=== PATIENT | male | born 1985 | race Caucasian/White ===

== ENCOUNTER 2019-04-28 07:55 | Emergency (ER) | payer MEDICARE, SELFPAY ==
[2019-04-28 07:57] VITALS: BP 154/82; PULSE 110; RESP 18; TEMP 36.6; O2SAT 97; BMI 24.3
--- NOTE | 2019-04-28 08:09 | ED.DCSUM_ITS ---
History of Present Illness Chief Complaint: Med Refill Informant: Patient Onset: Yesterday Context: Sudden Onset Timing: Continuous Quality: Prescription refill Location: not applicable Current Severity: Mild Maximum Severity: Moderate Worsened by: Not applicable Relieved by: Not applicable Associated Symptoms: Slight hyperactivity Narrative: Patient is a 34-year-old male who presents because his prescription for Seroquel and Latuda are nonrefillable. He is unable to contact his therapist. He presents for refill. He denies suicidal homicidal thoughts. He denies any other symptoms. Prior similar symptoms: No Recent Illness/Hospitalization: No Past Medical History - Allergies and Home Meds Allergies/Adverse Reactions: Allergies amoxicillin Allergy (Verified 04/28/19 07:58) Swelling Penicillins [PCN] Allergy (Verified 04/28/19 07:58) Swelling Primary Care Physician: Care Physician,No Primary [Primary Care Provider] - Prior records reviewed: No Past Medical History: - - Bipolar affective disorder Surgical History: noncontributory Lives: Alone Smoking Status: Current every day smoker Drugs: None Review of Systems General: Denies: Chills - Everything looks like it is in his, Fever, Malaise - Bag, Sweats Eyes: Denies: Visual changes - bilaterally, Blurred Vision - bilaterally Cardiovascular: Denies: Chest pain Respiratory: Denies: Dyspnea Psych: Denies: Depression, Anxiety, Suicidal thoughts, Suicidal ideations - Is 1 Hematologic: Denies: Easy bruising, Easy bleeding Allergy: Reports: Swelling of the mouth, Swelling of the tongue. Denies: Uticaria Physical Exam Vital Signs/Narrative: Vital Signs Temp Pulse Resp BP Pulse Ox 04/28/19 07:57 97.8 F 110 H 18 154/82 H 97 General: Well nourished, Well developed, No Acute Distress Head: Normocephalic, Atraumatic Eyes: Perrl, EOMI. Negative for: Pale conjunctiva, Scleral icterus Cardiovascular: Regular rate, Regular rhythm, No murmurs Respiratory: No distress Skin: Normal color, No rash Neurological: Alert, Oriented x3, Cranial nerves II-XII grossly intact, Normal Strength, Normal Sensation Psychological: - - Slightly anxious Diagnostic/Tx/Re-eval - Medical Decision Making Patient presents for prescription refill. He was given a prescription for Ser oquel and Latuda. ED Disposition - Plan for ED Patient: Disposition: Home or Assisted Living Diagnosis: Difficulty refilling prescriptions Instructions: Med Refill Prescriptions: Lurasidone HCl [Latuda] 40 mg PO QHS #30 tab Prescription Printed Quetiapine Fumarate [Seroquel] 100 mg PO QHS #30 tab Prescription Printed Referrals: Care Physician,No Primary [Primary Care Provider] - Doctor,Your [STAFF PHYSICIAN] - 1-2 Weeks
== END 2019-04-28 08:49 | disposition home or self-care (01) ==
LOC: ED 08:28
PROVIDERS: Emergency Provider Emergency Medicine
DX: Z76.0 Encounter for issue of repeat prescription (principal); F31.9 Bipolar disorder, unspecified; F17.200 Nicotine dependence, unspecified, uncomplicated; Z88.0 Allergy status to penicillin
CPT/HCPCS: 99282

== ENCOUNTER 2019-05-06 12:34 | Emergency (ER) | payer MEDICARE, SELFPAY ==
[2019-05-06 12:37] VITALS: BP 145/101; PULSE 113; RESP 16; TEMP 36.8; O2SAT 100; BMI 25.0
--- NOTE | 2019-05-06 13:03 | ED.VIS.PSYCH ---
History of Present Illness Chief Complaint: Mental Health Detail of Chief Complaint: Manic Informant: Patient Onset: Weeks, - - 2 Weeks Context: Gradual Onset Current Severity: Moderate Maximum Severity: Moderate Associated Symptoms: Change in sleeping, Pressured Speech Narrative: Patient has a history of bipolar disorder and schizophrenia. Patient has had 2-week history of increasing manic symptoms. He states he is not sleeping. He is currently on Latuda and Seroquel. Prior similar symptoms: Yes - Past Medical History (1) Bipolar disorder Status: Acute (2) Schizophrenia Status: Acute Past Medical History - Allergies and Home Meds Allergies/Adverse Reactions: Allergies amoxicillin Allergy (Verified 04/28/19 07:58) Swelling Penicillins [PCN] Allergy (Verified 04/28/19 07:58) Swelling Primary Care Physician: Care Physician,No Primary [Primary Care Provider] - Prior records reviewed: Yes Past Medical History: - - Reviewed Surgical History: noncontributory Smoking Status: Current every day smoker Review of Systems General: Denies: Chills, Fever Cardiovascular: Denies: Chest pain Respiratory: Denies: Dyspnea, Cough Gastrointestinal: Denies: Abdominal pain, Nausea, Vomiting Genitourinary: Denies: Dysuria Neurological: Denies: Headache Psych: Reports: Anxiety, - - Difficulty sleeping and feels like he is manic Physical Exam Vital Signs/Narrative: Vital Signs Temp Pulse Resp BP Pulse Ox 05/06/19 12:37 98.3 F 113 H 16 145/101 H 100 General: Well nourished, Well developed ENT: Moist mucous membranes Cardiovascular: Tachycardia Respiratory: No distress, CTA bilaterally Abdomen: Soft, Nontender, Hypoactive bowel sounds Neurological: Alert Psych: No suicidal or homicidal ideation, - - Pressured speech. Diagnostic/Tx/Re-eval Abnormal Lab Results 05/06/19 05/06/19 05/06/19 14:18 14:18 14:18 WBC 6.4 RBC 4.93 Hgb 15.2 Hct 43.5 MCV 88.2 MCH 30.8 MCHC 34.9 RDW 12.3 RDW Differential 39.4 Plt Count 230 MPV 8.9 Immature Gran % (Auto) 0.200 Neut % (Auto) 53.0 Lymph % (Auto) 33.5 Dare % (Auto) 11.0 H Eos % (Auto) 1.4 Baso % (Auto) 0.9 Absolute Neuts (auto) 3.4 Absolute Lymphs (auto) 2.14 Total Counted Not Reportable Sodium 138 Potassium 3.6 Chloride 106 Carbon Dioxide 27.0 Anion Gap 5 BUN 13 Creatinine 0.98 Estim Creat Clear Calc 103.72 Est GFR (MDRD) Af Amer 113 Est GFR (MDRD) Non-Af 94 BUN/Creatinine Ratio 13.3 Glucose 102 Calcium 9.3 Urine Opiates Screen Urine Methadone Screen Ur Barbiturates Screen Ur Phencyclidine Scrn Ur Amphetamines Screen U Methamphetamin-MDMA U Benzodiazepines Scrn Urine Cocaine Screen U Cannabinoids Screen Ur Drug Screen Comment Ethyl Alcohol 7.0 05/06/19 15:40 WBC RBC Hgb Hct MCV MCH MCHC RDW RDW Differential Plt Count MPV Immature Gran % (Auto) Neut % (Auto) Lymph % (Auto) Dare % (Auto) Eos % (Auto) Baso % (Auto) Absolute Neuts (auto) Absolute Lymphs (auto) Total Counted Sodium Potassium Chloride Carbon Dioxide Anion Gap BUN Creatinine Estim Creat Clear Calc Est GFR (MDRD) Af Amer Est GFR (MDRD) Non-Af BUN/Creatinine Ratio Glucose Calcium Urine Opiates Screen NEGATIVE Urine Methadone Screen NEGATIVE Ur Barbiturates Screen NEGATIVE Ur Phencyclidine Scrn NEGATIVE Ur Amphetamines Screen POSITIVE H U Methamphetamin-MDMA NEGATIVE U Benzodiazepines Scrn NEGATIVE Urine Cocaine Screen NEGATIVE U Cannabinoids Screen NEGATIVE Ur Drug Screen Comment Ethyl Alcohol Patient presents with history of bipolar and schizophrenia with worsening manic episodes over the past 2 weeks. Patient had been in contact with [facility]. vehicle delivery worker saw the patient and has contacted [facility]. Paperwork and labs are being faxed to them with anticipation of transfer. Disposition: Transfer ED Disposition - Plan for ED Patient: Referrals: Care Physician,No Primary [Primary Care Provider] -
--- NOTE | 2019-05-06 13:15 | CM.ED ---
Social Work Assessment Referral Date: 05/06/19 Informant: DR. SANCHEZ Reason for Consult: MENTAL HEALTH- MANIC EPISODES-PLACEMENT Information obtained from: DR. SANCHEZ, PATIENT, AND PATIENT'S STEP FATHERLISA Living Arrangements: PATIENT REPORTS RECENTLY MOVED TO [place] 2 WEEKS AGO FROM [place]. STAYED WITH FAMILY FOR A FEW DAYS, CURRENTLY LIVING IN A MOTEL. Employment/Financial: DISABLED Supports: PATIENT STATES WAS FOLLOWING [facility] [place]. PATIENT REPORTS GOOD SUPPORT FROM FAMILY. Social/Family Stressors: PATIENT REPORTS FEELING PARANOID, UNABLE TO SLEEP, TALKING TO SELF. PATIENT STATES MEDICATIONS HAS BEEN CHANGED AROUND AND FEELS LIKE HE NEEDS HELP. PATIENT STEP FATHER IN ROOM AND IN AGREEMENT. Mental Health History: PATIENT ADMITS TO OF BIPOLAR DISORDER AND SCHIZOPHRENIA. PATIENT STATES CURRENTLY ON LATUDA AND SEROQUEL. PATIENT STATES TOOK A TRIPLE DOSE OF HIS SEROQUEL A FEW NIGHTS AGO BECAUSE HE COULD NOT SLEEP. PATIENT WITH DISORGANIZED THOUGHTS, PARANOID BEHAVIOR, RAPID SPEECH, AND FLIGHT OF IDEAS. Substance Abuse History: PATIENT ADMITS TO OF SUBSTANCE USE-RECREATIONAL. PATIENT STATES ABOUT 3 WEEKS AGO WAS PARTYING IN [place]. PATIENT REPORTS USE OF SPEED, ANXIETY MEDS, OTHER PILLS. PATIENT REPORTS USED MARIJUANA 3-4 DAYS AGO, DRANK A CHAVIRA LAST NIGHT WITH HIS SEROQUEL. Interventions: SOCIAL SERVICE ASSESSMENT COLLABORATION WITH DR. SANCHEZ- RECOMMENDING INPATIENT PSYCH PLACEMENT. PATIENT IS CURRENTLY VOLUNTARY. Assessment: PATIENT IS A 34 Y/O MALE WHO PRESENTS TO ED FOR MENTAL HEALTH. PATIENT HAVING MANIC EPISODE THAT HE REPORTS HAS BEEN GOING ON FOR A FEW WEEKS. PATIENT RECENTLY MOVED TO [place] FROM [place]. PATIENT STATES MEDICATIONS HAVE BEEN CHANGED AND FEELS LIKE HE NEEDS HELP. PATIENT REPORTS HAS BEEN MORE PARANOID, TALKING TO SELF, DELUSIONAL. PATIENT WITH RAPID SPEECH, FLIGHT OF IDEAS, DISORGANIZED THINKING. PATIENT'S STEP FATHER IN ROOM DURING ASSESSMENT WITH PATIENT'S PERMISSION AND IS IN AGREEMENT PATIENT NEEDING HELP. PATIENT ADMITS TO RECREATIONAL DRUG USE AND STATES SMOKED MARIJUANA 3-4 DAYS AGO AND DRANK A CHAVIRA WITH HIS MEDICATIONS LAST EVENING. PATIENT VOICES HE WANTS HELP AND HAS BEEN IN CONTACT WITH [facility]. DISCUSSED WITH DR. SANCHEZ. DR. SANCHEZ IN AGREEMENT WITH PLAN FOR INPATIENT PSYCH. THIS WORKER TO REFER PATIENT TO [facility]. PLAN: PSYCH HOSPITALIZATION. REFERRAL TO [facility].
[2019-05-06] MEDS: Ziprasidone IM 20 MG/ML VIAL 10 MG IM (13:46)
[2019-05-06 13:52] VITALS: BP 129/115
--- NOTE | 2019-05-06 14:01 | CM.ED ---
SOCIAL WORK CALL TO [facility] TO UPDATE ON REFERRAL. NET ARCHITECT STATES PATIENT WILL NEED TO BE MEDICALLY CLEARED. AWAITING LABS AND TOX SCREEN. WILL FAX ONCE RECEIVED. JUD OLVERA, DURALUMIN METALWORKER, DRIVER EDUCATION ROAD INSTRUCTOR.
[2019-05-06 14:35] LABS: Absolute Lymphocyte Count 2.14 X10^3/ul (0.83-4.51); Absolute Neutrophil Count 3.4 X10^3/uL (2.0-7.7); Basophil# 0.06 X10^3/uL; Basophil% 0.9 % (0-1); Eosinophil# 0.09 X10^3/uL; Eosinophils% 1.4 % (0-5); Hematocrit 43.5 % (40-54); Hemoglobin 15.2 g/dl (13.0-16.5); Lymphocyte # 2.14 X10^3/ul (4.0); Lymphocyte % 33.5 % (19-41); Mean Corp Hgb Conc 34.9 g/gl (32-36); Mean Corpuscular Hgb 30.8 pg (27.0-32.0); Mean Corpuscular Volume 88.2 fL (80-94); Mean Platelet Vol. 8.9 fl (6.2-12.0); Neutrophil # 3.39 X10^3/uL (2.7-7.7); Platelet Count 230 K/mm3 (150-450); RBC Distribution Width CV 12.3 % (11.6-14.6); RBC Distribution Width SD 39.4 fl (35.1-43.9); Red Blood Count 4.93 M/mm3 (4.6-6.2); White Blood Count 6.4 K/mm3 (4.4-11.0)
[2019-05-06 14:37] LABS: POSITIVE COUNT NO; POSITIVE DIFFERENTIAL NO; POSITIVE MORPHOLOGY NO
[2019-05-06 14:38] LABS: Anion Gap 5 (5-15); BUN 13 mg/dL (7-18); BUN/Creat Ratio 13.3 RATIO (10-20); Calcium,Total 9.3 mg/dL (8.5-10.1); Chloride 106 mmol/L (98-107); Creatinine, Serum 0.98 mg/dL (0.70-1.30); EST Glomerular Filtration Rate 94 mL/min (>60); Est Glom Filt Rate - Afr Amer 113 mL/min (>60); Estimated Creatinine Clearance 103.72 ml/min; Glucose 102 mg/dL (74-106); Potassium 3.6 mmol/L (3.5-5.1); Sodium Level 138 mmol/L (136-145)
--- NOTE | 2019-05-06 15:38 | CM.ED ---
SOCIAL WORK PATIENT'S LABS FAXED TO [facility]. AWAITING TOX SCREEN. NURSING AND DR. SANCHEZ UPDATED. JUD OLVERA, CONCRETE MIXER OPERATOR, ATTRACTION WORKER.
[2019-05-06 16:13] VITALS: BP 120/91; PULSE 90; RESP 16; O2SAT 99
[2019-05-06 16:34] LABS: Amphetamine Urine VISTA POSITIVE (<1000 ng/mL); Barbiturate Urine VISTA NEGATIVE (< 200 ng/mL); Benzodiazepine Urine VISTA NEGATIVE (< 200 ng/mL); Cocaine Urine VISTA NEGATIVE (< 300 ng/mL); Ecstacy Urine VISTA NEGATIVE (< 500 ng/mL); Methadone Urine VISTA NEGATIVE (< 300 ng/mL); PCP Urine VISTA NEGATIVE (< 25 ng/mL); THC Urine VISTA NEGATIVE (< 50 ng/mL); Vista UDS pH Range 7
--- NOTE | 2019-05-06 16:36 | CM.ED ---
SOCIAL WORK RECEIVED CALL FROM ROXANNE WITH [facility] REQUESTING EKG, TOX SCREEN AND PAST MEDICAL HX. UPDATED BATH ATTENDANT ON NEED FOR EKG. WILL FAX CLINICAL INFORMATION ONCE COMPLETED. JUD OLVERA, RUG CLEANER, GEOMORPHOLOGIST.
--- NOTE | 2019-05-06 16:40 | CM.ED ---
SOCIAL WORK RESULTS OF TOX SCREEN FAXED TO [facility]. JUD OLVERA, REACHER, BILINGUAL SOCIAL WORKER.
--- NOTE | 2019-05-06 16:45 | EKG12_ITS ---
Test Reason : MENTAL HEALTH Blood Pressure : / mmHG Vent. Rate : 093 BPM Atrial Rate : 093 BPM P-R Int : 138 ms QRS Dur : 086 ms QT Int : 346 ms P-R-T Axes : 084 082 059 degrees QTc Int : 430 ms Poor data quality, interpretation may be adversely affected Normal sinus rhythm Normal ECG Confirmed by DELICIA INTERIANO, MEETA ([id number]), assignment editor KARTHIK SINGH ([id number]) on 05/09/2019 1:10:55 PM Referred By: DANIEL Confirmed By:MEETA NESBITT MD
--- NOTE | 2019-05-06 17:16 | CM.ED ---
SOCIAL WORK EKG FAXED TO [facility]. AWAITING ACCEPTANCE AT THIS TIME. JUD OLVERA, BASS FISHER, BEATER OUT LEVELING MACHINE.
--- NOTE | 2019-05-06 17:36 | CM.ED ---
SOCIAL WORK RECEIVED CALL FROM ROXANNE WITH [facility]. PATIENT ACCEPTED BY DR. CATHERINE FOR [facility]. NURSE CAN CALL REPORT TO . ROXANNE INQUIRING ABOUT PINK SLIP. INFORMED PATIENT HAS BEEN VOLUNTARY UP TO THIS POINT. WILL DISCUSS WITH PATIENT. ROXANNE TO FAX OVER VOLUNTARY FORM FOR PATIENT TO COMPLETE AND HAVE WITNESSED. JUD OLVERA, REFINER OPERATOR, RESPIRATORY CARE SPECIALIST.
--- NOTE | 2019-05-06 17:40 | CM.ED ---
SOCIAL WORK MET WITH PATIENT TO UPDATE ON ACCEPTANCE TO [facility]. PATIENT STATES FEELS BETTER AND THINKS HE CAN GO HOME. DISCUSSED PATIENT'S NEED FOR INPATIENT TREATMENT. UPDATED DR. CISNEROS. PINK SLIPPED SIGNED. CALL TO ROXANNE AT [facility] TO UPDATE PATIENT HAS BEEN PINK SLIPPED. ROXANNE REQUESTING COPY. COPY FAXED. UPDATED TRAFFIC ENGINEERING TECHNICIAN-EKTA AND PATIENT'S NURSE ON THE ABOVE. TRAFFIC ENGINEERING TECHNICIAN TO SET UP TRANSPORT. JUD OLVERA, TABLE TENDER, KNIT GOODS WASHER.
[2019-05-06 18:07] VITALS: BP 116/91; PULSE 94; RESP 14; O2SAT 100
--- NOTE | 2019-05-06 18:13 | ED.RN ---
ATTEMPTED TO CALL RN [facility] UNABLE TO REACH AT THIS TIME.
== END 2019-05-06 19:52 ==
PROVIDERS: Emergency Provider Emergency Medicine
DX: F31.9 Bipolar disorder, unspecified (principal); F20.9 Schizophrenia, unspecified; Z88.0 Allergy status to penicillin; F17.200 Nicotine dependence, unspecified, uncomplicated; Z79.899 Other long term (current) drug therapy
CPT/HCPCS: 80048; 80307; 80320; 85025; 93005; 96372; 99283; G0480; J3486

== ENCOUNTER 2020-08-15 21:27 | Emergency (ER) | payer MEDICARE, SELFPAY ==
[2020-08-15 21:28] VITALS: BP 144/88; PULSE 124; RESP 15; TEMP 37.3; O2SAT 98; BMI 28.0
--- NOTE | 2020-08-15 21:37 | RAD_ITS ---
HISTORY: PAIN ALONG RIGHT SIDE OF LOWER BACK AFTER BASKETBALL INJURY 2 DAYS AGO ADDITIONAL HISTORY: None provided. EXAMINATION/TECHNIQUE: XR Spine Lumbar 2 or 3 Views Number of images including paperwork: 2 COMPARISON: None FINDINGS: VERTEBRAE: No acute fracture. VERTEBRAL ALIGNMENT: No traumatic subluxation. DISKS AND JOINTS: No significant degenerative changes. SOFT TISSUES: Unremarkable paraspinous soft tissues. RAD/Lumbar Spine 2 or 3 Views IMPRESSION: No acute findings. at 2219 Reported and signed by: Marjorie Limon MD Electronically Signed: Marjorie Limon MD at 22:19 EDT Tel , Service support ,
--- NOTE | 2020-08-15 21:40 | ED.DCSUM_ITS ---
History of Present Illness Chief Complaint: Fall Informant: Patient Onset: Days Context: Gradual Onset Timing: Continuous Current Severity: Moderate Maximum Severity: Moderate Narrative: The patient is a 35-year-old male with history of schizoaffective disorder that presents to the emergency department hand and back injury. Patient states that 2 days ago, he was playing basketball. He states that he hit someone's hand and then fell to the ground. He hit his low back. Since then, has had some tightness across his low back. It does not radiate down his leg. He denies any trouble urinating. He denies any fevers or chills. He states that he took some Tylenol today with little improvement. He denies any history of prior back injury or surgery. He denies any history of IV drug use. He is right-hand dominant. 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 Prior similar symptoms: No Recent Illness/Hospitalization: No Past Medical History - Allergies and Home Meds Allergies/Adverse Reactions: Allergies amoxicillin Allergy (Verified 08/15/20 21:28) Swelling Penicillins [PCN] Allergy (Verified 08/15/20 21:28) Swelling Primary Care Physician: NOT,DEFINED [NON-STAFF] - Prior records reviewed: Yes Past Medical History: - Surgical History: noncontributory Smoking Status: Never smoker Review of Systems ROS: - Schizoaffective disorder General: Denies: Chills, Fever, Sweats Eyes: Denies: Visual changes - bilaterally, Diplopia ENT: Denies: Rhinorrhea, Sore throat Cardiovascular: Denies: Chest pain, Palpitations Respiratory: Denies: Dyspnea, Cough, Dyspnea on exertion Gastrointestinal: Denies: Abdominal pain, Nausea, Vomiting, Diarrhea, Melena, Hematochezia Genitourinary: Denies: Dysuria, Hematuria, Frequency Musculoskeletal: Denies: Back pain, Extremity Pain Skin: Denies: Rash, Wounds Neurological: Denies: Headache, Weakness, Numbness Physical Exam Vital Signs/Narrative: Vital Signs Temp Pulse Resp BP Pulse Ox 08/15/20 21:28 99.1 F 124 H 15 144/88 H 98 Inital Vital Signs reviewed: Yes General: Well nourished, Well developed, No Acute Distress Head: Normocephalic, Atraumatic Eyes: Perrl, EOMI ENT: Moist mucous membranes, No rhinorrhea Neck: Supple, Nontender Cardiovascular: Regular rate, Regular rhythm, No murmurs Respiratory: No distress, CTA bilaterally, Chest nontender Abdomen: Soft, Nontender, Nondistended, Normal bowel sounds Back: Normal Inspection, - - Tender in the right lateral lumbar area. Straight leg raise negative. 2+ symmetric lower extremity pulses. 2+ reflexes. No weakness of dorsiflexion, plantar flexion, or extensor hallucis longus.. Negative for: Spinal tenderness Extremities: No edema, Tenderness - Mild tenderness over the right fifth digit. Flexion extension preserved. No deformity. No rotational deformity. Normal cap refill. Skin: Normal color, No rash Neurological: Alert, Oriented x3, Cranial nerves II-XII grossly intact, Normal Strength, Normal Sensation Psychological: Normal affect, Normal Mood Diagnostic/Tx/Re-eval - Medical Decision Making Plain films were obtained of the lumbar spine and of the hand. There is no evidence of fracture dislocation. The patient's symptoms in his back do seem primarily muscular. He has no red flag symptoms. He is normal pulses of the lower extremity. He has normal reflexes and gait. I do feel that his symptoms are secondary to contusion. Plain films of the hand were also unremarkable. At this point, I will treat the patient with anti-inflammatories. He will be discharged home. Impression 1. Lumbar contusion 2. Right hand contusion ED Disposition - Plan for ED Patient: Instructions: ED LUMBAR SPRAIN/STRAIN, ED HAND CONTUSION Prescriptions: Naproxen [Naprosyn] 500 mg PO BID PRN #20 tab Prescription Printed Referrals: NOT,DEFINED [NON-STAFF] -
--- NOTE | 2020-08-15 21:53 | RAD_ITS ---
HISTORY: PAIN ALONG 5TH DIGIT/METACARPAL AFTER INJURY PLAYING BASKETBALL A COUPLE DAYS AGO ADDITIONAL HISTORY: None provided. EXAMINATION/TECHNIQUE: XR Hand Min 3 Views Right Number of images including paperwork: 3 COMPARISON: None FINDINGS: BONES: No acute fracture. JOINTS: No subluxation. SOFT TISSUES: No distinct foreign body. RAD/Hand Min 3 Views IMPRESSION: No acute osseous abnormality. at 2218 Reported and signed by: Marjorie Limon MD Electronically Signed: Marjorie Limon MD at 22:17 EDT Tel , Service support ,
== END 2020-08-15 22:36 | disposition home or self-care (01) ==
LOC: ED 21:51
PROVIDERS: Emergency Provider Emergency Medicine
DX: S30.0XXA Contusion of lower back and pelvis, initial encounter (principal); W03.XXXA Other fall on same level due to collision with another person, initial encounter; Y93.67 Activity, basketball; Y92.9 Unspecified place or not applicable; Y99.9 Unspecified external cause status; F25.9 Schizoaffective disorder, unspecified; Z79.899 Other long term (current) drug therapy; S60.221A Contusion of right hand, initial encounter
CPT/HCPCS: 72100; 73130; 99281; 99283

== ENCOUNTER 2021-04-08 17:37 | Emergency (ER) | payer MEDICARE, MEDICAID, SELFPAY ==
[2021-04-08 17:39] VITALS: BP 147/100; PULSE 65; RESP 14; TEMP 36.7; O2SAT 99; BMI 28.0
[2021-04-08] MEDS: Diphth,Pertuss(Acell),Tet Vac 0.5 ML Vial IM (18:25)
[2021-04-08] MEDS: Lidocaine 1% (20 ml mdv) 20 ML Vial INFILT (18:27)
--- NOTE | 2021-04-08 18:35 | EX.ED.GENINJ ---
HPI History of Present Illness Chief Complaint: Laceration Informant: patient Narrative Narrative: 36-year-old male states that he was attempting to move a toilet when he sustained a laceration to the volar aspect of his right index finger. Unknown last tetanus. [facility] Medical History Anxiety Depression Home Medications quetiapine 100 mg PO QHS #30 tab 04/28/19 [Rx Last Taken Unknown] lurasidone 80 mg PO DAILY 05/06/19 [History Last Taken Unknown] naproxen 500 mg PO BID PRN #20 tab 08/15/20 [Rx Last Taken Unknown] lithium carbonate 300 mg PO BID 04/08/21 [History Last Taken Unknown] Allergy/AdvReac Type Severity Reaction Status Date / Time amoxicillin Allergy Swelling Verified 04/08/21 17:39 Penicillins [PCN] Allergy Swelling Verified 04/08/21 17:39 no surgical history Social History (Updated 04/08/21 @ 18:[address] William Guadarrama DO) Smoking Status: Current every day smoker tobacco type: cigarettes substance use type: does not use ROS ROS ED Constitutional Constitutional ED: Denies chills or weight loss Eyes Eyes: Denies change in vision or diplopia ENT ENT ED: Denies ear pain, rhinorrhea or sore throat Cardiovascular Cardiovascular: Denies chest pain, orthopnea, palpitations or racing heartbeat Respiratory/Chest Respiratory/Chest: Denies cough, dyspnea or orthopnea Gastrointestinal Gastrointestinal: Denies abdominal pain, diarrhea, nausea or vomiting Genitourinary Genitourinary ED: Denies dysuria, hematuria or urinary frequency Musculoskeletal Musculoskeletal: Denies arthralgias or myalgias Integumentary Reports other Details: See history of present illness ; Denies abscess or rash Neurologic Neurologic: Denies headache(s) or weakness Psychiatric Psychiatric: Denies anxiety, depression, suicidal ideation or suicidal thoughts Endocrine Endocrinology: Denies polydipsia, polyphagia or polyuria Allergic/Immunologic Allergic/Immunologic ED: Denies mouth swelling, tongue swelling or urticaria EXAM Physical Exam Const Vital Signs: 04/08/21 17:39 Temperature 98.1 F Temperature Source Temporal Pulse Rate 65 Respiratory Rate 14 Blood Pressure 147/100 H Blood Pressure Mean 115 Pulse Ox 99 Oxygen Delivery Method Room Air Positive well nourished and well developed General Appearance ED: well developed HEENT Reports normocephalic, head/scalp atraumatic and moist mucous membranes Eyes PERRL and EOMs intact bilaterally Neck no lymphadenopathy, supple and no JVD Resp normal respiratory effort and clear to auscultation bilaterally Cardio regular rate, regular rhythm and no murmurs GI normal to inspection, nondistended, normoactive bowel sounds and non-tender Palpation: soft Back/Spine no CVA tenderness and normal ROM Extremity Extremity Narrative: There is a 2.5 cm linear laceration over the volar aspect of the proximal right index finger. Wound edges are well approximated. Direct testing of the profundus and superficialis tendons are normal. Laceration is into the subcutaneous tissue General Extremety ED: Negative for edema General Extremity: Negative for edema Neuro oriented x3 and CN's II-XII intact bilaterally Sensorium / Orientation: alert Motor Exam: strength 5/5 throughout Psych mental status grossly normal Mood & Affect: Negative for depressed or tearful Skin no rashes or lesions noted and no wounds MDM MDM MDM Narrative Medical decision making narrative: Wound was locally anesthetized using 1% lidocaine. Was washed with Shur-Clens and explored. No visualization of the tendon was made. Was closed using a total of #4 4-0 Ethilon sutures. Wound be dressed. Tetanus was updated with Adacel. Follow-up 10 days for suture removal Discharge Plan Triage Chief Complaint: Laceration Other Complaint: Suture Remv ED Provider: William Guadarrama Dx/Rx/DC Orders Clinical Impression: Finger laceration Instructions: ED Laceration, Hand: All Closures Prescriptions: No Action quetiapine 100 MG tablet 100 mg PO QHS Qty: 30 RF: 0 lurasidone 40 MG tablet 80 mg PO DAILY RF: 0 naproxen 500 MG tablet 500 mg PO BID PRN Qty: 20 RF: 0 lithium carbonate 300 mg Capsule 300 mg PO BID RF: 0 Primary Care Provider: Care Physician,No Primary Referrals: Care Physician,No Primary [Primary Care Provider] - Clinic,NOW [NON-STAFF] - 10 Day for suture removal Disposition Disposition: Home, self care
== END 2021-04-08 18:46 | disposition home or self-care (01) ==
PROVIDERS: Emergency Provider Emergency Medicine
DX: S61.210A Laceration without foreign body of right index finger without damage to nail, initial encounter (principal); X58.XXXA Exposure to other specified factors, initial encounter; Y93.89 Activity, other specified; Y92.89 Other specified places as the place of occurrence of the external cause; Y99.9 Unspecified external cause status; Z23 Encounter for immunization; F17.210 Nicotine dependence, cigarettes, uncomplicated
CPT/HCPCS: 12001; 90715; 99283

== ENCOUNTER 2021-08-07 18:22 | Emergency (ER) | payer MEDICARE, MEDICAID, SELFPAY ==
[2021-08-07 18:23] VITALS: BP 155/118; PULSE 122; RESP 16; TEMP 36.4; O2SAT 96; BMI 27.2
== END 2021-08-07 19:10 ==
LOC: ED 19:20
DX: R06.02 Shortness of breath (principal)

== ENCOUNTER 2022-03-14 11:39 | Emergency (ER) | payer MEDICARE, MEDICAID, SELFPAY ==
[2022-03-14 11:40] VITALS: BP 160/109; PULSE 107; RESP 18; TEMP 37.2; O2SAT 99; BMI 28.7
--- NOTE | 2022-03-14 11:53 | CT_ITS ---
STUDY: CT FACIAL BONES WITH CONTRAST REASON FOR EXAM: Male, 36 years old. Right facial swelling. Possible dental abscess. RADIATION DOSAGE (If Supplied By Facility): CTDIvol = ( 29.38 ) mGy, DLP = ( 620.92 ) mGycm TECHNIQUE: The patient was scanned in a multi detector CT scanner. Transaxial imaging was performed following the intravenous administration of IV 100mL Isovue-300. Sagittal and coronal images were reconstructed. Individualized dose optimization techniques were used for this CT. COMPARISON: None. FINDINGS: Diffuse soft tissue swelling overlying the right maxillary region. There is a 1.5 cm x 1 cm hypodensity adjacent to the deep right maxillary soft tissues abutting the maxillary bone. There is a lucency at the base of the premolar tooth in the right maxillary bone. This also evidence of a cavity within the last molar of the right posterior axillary arch. Normal orbital la and orbital contents. Normal nasal bones and anterior nasal spine. Normal facial bones. There is no demonstrated fracture. There is partial opacification of the right maxillary sinus. CT/Sinus/Facial Bone WITH Contras IMPRESSION: Diffuse swelling of the right maxillary soft tissues with findings suggestive of an abscess at the base of the premolar tooth of the right maxillary bone. Electronically Signed: Arie Rosales MD at 12:44 EDT ,
--- NOTE | 2022-03-14 11:56 | EDS_ITS ---
HPI History of Present Illness Chief Complaint: Dental Informant: patient Onset/Context/Timing Onset: Days Context: Gradual Onset Current Severity: Moderate Maximum Severity: Moderate Narrative Narrative: Patient presents secondary to dental abscess. He reports right upper dental pain with facial swelling for the past several days. He was seen at a walk-in clinic and given clindamycin. In spite of this he feels that the swelling is worsening. He denies fever or chills. [facility] Medical History Anxiety Bipolar disorder Depression Rolf's angina Schizophrenia Home Medications cetirizine 10 mg capsule 10 mg PO DAILY PRN 05/10/21 [History Last Taken Unknown] fluticasone propionate 50 mcg/actuation nasal spray,suspension 1 spray INTRANASAL DAILY g 05/10/21 [History Last Taken Unknown] kratom PO 05/10/21 [History Last Taken Unknown] phenobit 250 mg PO 05/10/21 [History Last Taken Unknown] metronidazole 500 mg PO TID #30 tab 03/14/22 [Rx Last Taken Unknown] Allergy/AdvReac Type Severity Reaction Status Date / Time amoxicillin Allergy Swelling Verified 03/14/22 11:43 Penicillins [PCN] Allergy Swelling Verified 03/14/22 11:43 Family History Other Diabetes Hypertension Myocardial infarction Seizures Sleep apnea Surgical History History of dental surgery [place] teeth removed Social History household members: none housing: house Smoking Status: Current every day smoker tobacco type: cigarettes alcohol intake: never substance use type: does not use what type of physical activity do you participate in: other details: basketball frequency: daily seatbelt use: always do you feel safe at home: Yes ROS ROS ED Constitutional Constitutional ED: Denies chills or fever(s) Eyes Eyes: Denies change in vision ENT ENT ED: Reports other Details: Right facial pain and swelling ; Denies sore throat Cardiovascular Cardiovascular: Denies chest pain Respiratory/Chest Respiratory/Chest: Denies cough or dyspnea Gastrointestinal Gastrointestinal: Denies abdominal pain, nausea or vomiting Musculoskeletal Musculoskeletal: Denies back pain or neck pain Integumentary Denies rash Neurologic Neurologic: Denies headache(s) or weakness Allergic/Immunologic Allergic/Immunologic ED: Denies urticaria EXAM Physical Exam Const Vital Signs: 03/14/22 11:40 Temperature 98.9 F Temperature Source Temporal Pulse Rate 107 H Respiratory Rate 18 Blood Pressure 160/109 H Blood Pressure Mean 126 Pulse Ox 99 Oxygen Delivery Method Room Air Positive well nourished and well developed General Appearance ED: well developed HEENT Reports moist mucous membranes HEENT Narrative: Right-sided facial edema over the maxilla. No erythema. Multiple dental cavities noted with no singular focal area of tenderness. Submandibular space is soft. Posterior pharynx is normal. Patient speaks with a strong voice and is tolerating secretions well. Eyes PERRL and EOMs intact bilaterally Neck supple Chest Wall inspection of chest normal and palpation of chest normal Resp normal respiratory effort and clear to auscultation bilaterally Cardio regular rate and regular rhythm GI non-tender Palpation: soft Extremity normal to inspection Neuro oriented x3 Sensorium / Orientation: alert Psych mental status grossly normal MDM MDM MDM Narrative Medical decision making narrative: Lab work and cultures obtained. Patient sent for CT scan of the facial bones with IV contrast. Lab Data Attestation: I reviewed the patient's lab results. Labs: Laboratory Results - last 24 hr 03/14/22 03/14/22 12:05 12:05 WBC 12.0 H RBC 5.07 Hgb 15.6 Hct 45.2 MCV 89.2 MCH 30.8 MCHC 34.5 RDW Std Deviation 37.6 RDW Coeff of [place] 11.7 Plt Count 277 MPV 8.9 Immature Gran % (Auto) 0.400 Neut % (Auto) 61.1 Lymph % (Auto) 25.2 [place] % (Auto) 10.9 H Eos % (Auto) 1.6 Baso % (Auto) 0.8 Absolute Neuts (auto) 7.3 Absolute Lymphs (auto) 3.02 Nucleated RBC % 0 Sodium 136 Potassium 4.2 Chloride 104 Carbon Dioxide 26.0 Anion Gap 6 BUN 11 Creatinine 1.13 Estim Creat Clear Calc 94.21 Est GFR (MDRD) Af Amer 95 Est GFR (MDRD) Non-Af 78 BUN/Creatinine Ratio 9.7 L Glucose 106 Calcium 9.6 Radiography Diagnostic Testing: Clinical Impression(s) from Imaging Studies Facial/Sinus 03/14/22 11:53 IMPRESSION: Diffuse swelling of the right maxillary soft tissues with findings suggestive of an abscess at the base of the premolar tooth of the right maxillary bone. Electronically Signed: Arie Rosales MD at 12:44 EDT , Treatment and Re-Evaluation Narrative: Lab work reveals mild white count elevation at 12.0. No left shift. Chemistry studies normal. CT scan does reveal swelling of the right maxillary soft tissues with an abscess at the base of the premolar tooth on the right maxillary bone. This is described as being right next to the maxillary bone. I spoke Dr. Flores. He states that the upper abscesses are not typically as severe as the lower. With patient having a penicillin allergy he is to continue clindamycin and we will add Flagyl. Patient is given return instructions. He is advised to use heat to the area. He will be referred to Dr. Flores for follow-up. Discharge Plan Triage Chief Complaint: Dental ED Provider: Karishma Paige Dx/Rx/DC Orders Clinical Impression: Dental abscess Instructions: ED Dental Abscess Prescriptions: New metronidazole 500 mg tablet 500 mg PO TID Qty: 30 RF: 0 No Action kratom PO RF: 0 phenobit 250 mg PO RF: 0 Zyrtec 10 mg capsule 10 mg PO DAILY PRNRF: 0 fluticasone propionate 50 mcg/actuation spray,suspension 1 spray intranasal DAILY RF: 0 Primary Care Provider: Care Physician,No Primary Referrals: Rupesh Flores DDS [STAFF PHYSICIAN] - 3-5 Days if not improving Care Physician,No Primary [Primary Care Provider] - Disposition Disposition: Home, Self Care
[2022-03-14 12:27] LABS: Anion Gap 6 (5-15); BUN 11 mg/dL (7-18); BUN/Creat Ratio 9.7 RATIO (10-20); Calcium,Total 9.6 mg/dL (8.5-10.1); Chloride 104 mmol/L (98-107); Creatinine, Serum 1.13 mg/dL (0.70-1.30); EST Glomerular Filtration Rate 78 mL/min (>60); Est Glom Filt Rate - Afr Amer 95 mL/min (>60); Estimated Creatinine Clearance 94.21 ml/min; Glucose 106 mg/dL (74-106); Potassium 4.2 mmol/L (3.5-5.1); Sodium Level 136 mmol/L (136-145)
[2022-03-14 12:32] LABS: Absolute Lymphocyte Count 3.02 X10^3/uL (0.83-4.51); Absolute Neutrophil Count 7.3 X10^3/uL (2.0-7.7); Basophil% 0.8 % (0-1); Eosinophil# 0.19 X10^3/uL; Eosinophils% 1.6 % (0-5); Hematocrit 45.2 % (40-54); Hemoglobin 15.6 g/dL (13.0-16.5); Lymphocyte # 3.02 X10^3/ul (0.83-4.51); Lymphocyte % 25.2 % (19-41); Mean Corp Hgb Conc 34.5 g/dL (32-36); Mean Corpuscular Hgb 30.8 pg (27.0-32.0); Mean Corpuscular Volume 89.2 fL (80-94); Mean Platelet Vol. 8.9 fl (6.2-12.0); Monocyte# 1.31 X10^3/uL; Monocyte% 10.9 % (0-10); NRBC Flagged by Analyzer 0 % (0-5); Neutrophil # 7.31 X10^3/uL (2.7-7.7); Neutrophil % 61.1 % (47-70); Platelet Count 277 K/mm3 (150-450); RBC Distribution Width CV 11.7 % (11.6-14.6); RBC Distribution Width SD 37.6 fl (35.1-43.9); Red Blood Count 5.07 M/mm3 (4.6-6.2)
[2022-03-14 13:25] VITALS: BP 157/103; PULSE 92; RESP 16; O2SAT 97
== END 2022-03-14 13:27 | disposition home or self-care (01) ==
PROVIDERS: Emergency Provider Emergency Medicine; Visit Provider Emergency Medicine
DX: K04.7 Periapical abscess without sinus (principal); F20.9 Schizophrenia, unspecified; F31.9 Bipolar disorder, unspecified; F41.9 Anxiety disorder, unspecified; F17.210 Nicotine dependence, cigarettes, uncomplicated
CPT/HCPCS: 70487; 80048; 85025; 87040; 99283; Q9967; A4216

== ENCOUNTER 2024-06-25 15:58 | Emergency (ER) | payer MEDICARE, MEDICAID, SELFPAY ==
[2024-06-25 16:02] VITALS: BP 150/98; PULSE 117; RESP 20; TEMP 36.2; O2SAT 100; BMI 21.6
--- NOTE | 2024-06-25 16:13 | EX.ED.DYSGE1 ---
HPI History of Present Illness Chief Complaint: Constipation [facility] Medical History Anxiety Bipolar disorder Depression Rolf's angina Schizophrenia Home Medications ?Medication ?Instructions ?Recorded ?Last Taken ?Type cetirizine 10 mg capsule (Zyrtec) 10 mg PO DAILY PRN 05/10/21 Unknown History fluticasone propionate 50 1 spray intranasal DAILY 05/10/21 Unknown History mcg/actuation nasal spray,suspension kratom PO 05/10/21 Unknown History phenobit 250 mg PO 05/10/21 Unknown History metronidazole 500 mg tablet 500 mg PO TID #30 tabs 03/14/22 Unknown Rx cefdinir 300 mg capsule 600 mg (2 x 300 mg) PO DAILY #7 06/25/24 Unknown Rx caps Allergy/AdvReac Type Severity Reaction Status Date / Time amoxicillin Allergy Swelling Verified 06/25/24 16:03 Penicillins (PCN) Allergy Swelling Verified 06/25/24 16:03 Family History Other Diabetes Hypertension Myocardial infarction Seizures Sleep apnea Surgical History History of dental surgery [place] teeth removed Social History household members: none housing: house Smoking Status: Current every day smoker tobacco type: cigarettes alcohol intake: never substance use type: does not use what type of physical activity do you participate in: other details: basketball frequency: daily seatbelt use: always do you feel safe at home: Yes EXAM Physical Exam Const Vital Signs: 06/25/24 16:02 Temperature 97.2 F L Temperature Source Temporal Pulse Rate 117 H Respiratory Rate 20 H Blood Pressure 150/98 H Blood Pressure Mean 115 Pulse Ox 100 Oxygen Delivery Method Room Air MDM MDM MDM Narrative Medical decision making narrative: HISTORY OF PRESENT ILLNESS: 39-year-old male presents with constipation. He states he has lots of pressure in his rectum. He notes painful urination as well. He further states this occurred 3 days ago. Notes last bowel movement 7 days ago. Notes his usual frequency between bowel movements 7 days. He states he feels better today but is concerned about not having regular bowel movements. States he tried to change his diet to keto diet which has not improved his frequency or volume of stools. He also notes painful urination. Denies hematuria, sexual activity, lesions to the penis, no vomiting, no chest pain, no shortness of breath, no fever. Denies history of abdominal surgeries. Patient is not sexually active. REVIEW OF SYSTEMS: Pertinent positives: Constipation, painful urination Pertinent negatives: Vomiting, fever PHYSICAL EXAM: Nursing triage notes reviewed, Vital signs reviewed Constitutional: please see [facility] HENT: MMM Eyes: Pupils equal round and reactive to light, Extraocular muscles intact Neck: No stridor, no JVD, full neck ROM Lungs: Clear to auscultation, No wheezing or rales. No increased work of breathing, no conversational dyspnea, no accessory muscle use, no nasal flaring. No respiratory distress noted Heart: Regular rate and rhythm, No murmurs, No rubs and No gallops, 2+ distal pulses (radial, femoral, posterior tibial) in all extremities Abdomen: Soft, there is no tenderness, rigidity, rebound or guarding, no obvious peritoneal signs, no palpable pulsatile abdominal masses, no auscultated abdominal bruit : No CVAT Extremities: No edema Neuro: No focal neurological deficits, cranial nerves II through XII intact, 5/5 strength in all extremities. Intact sensation to light touch in all extremities, 2+ reflexes bilateral patella tendons. Normal gait. No ataxia. Skin: No rash or lesions noted MEDICAL DECISION MAKING: Chief Complaint: Constipation External records reviewed: Imaging reviewed: No recent [facility] imaging of the abdomen or pelvis Factors affecting care: History of bipolar disorder, polysubstance abuse Social determinants of health: n polysubstance abuse [facility] Narrative: Patient was initially tachycardic with a rate of 117 otherwise afebrile and nontoxic-appearing. Abdominal exam was benign, no peritoneal signs. I considered the following differential diagnosis: Small bowel obstruction, constipation, fecal impaction The patient abdominal exam was benign not consistent with obstruction. In addition to this per his history patient has had his usual frequency of bowel movements approximately 7 days per his report. I did obtain a KUB to assess any signs of a large bowel obstruction. I also obtained a urinalysis to rule out UTI given report of painful urination. ALL IMAGES (IF OBTAINED) HAVE BEEN PERSONALLY REVIEWED AND INTERPRETED BY MYSELF. Urinalysis with evidence of UTI, hematuria. Will send for culture and start empirical antibiotics. Will start patient empirically on cefdinir for 7 days KUB read and reviewed personally myself shows no evidence of obvious intra-abdominal obstruction. KUB consistent with patient's history of constipation. The patient and/or family, caregivers express understanding. The patient and/or family, caregivers agrees with the plan. Shared decision making: I will have a discussion with the patient and or visitors regarding risk/benefits of further testing or admission. They will be made aware of of the risk/benefits inherent in this decision they will be given the opportunity to voice understanding. Total critical care time today provided was at least 0 minutes. This excludes separately billable procedures. Critical care time (if documented) is secondary to the patient having high probability of clinically significant/life threatening deterioration in the patient's condition which required my urgent intervention. Impression: 1. Constipation 2. UTI Dispo: Discharge home This note was generated with [employer] dictation software. It may contain incorrect words, spelling, and punctuation that were not noted in review of the chart prior to signing. Lab Data Labs: Laboratory Results - last 24 hr 06/25/24 16:42 Urine Color Yellow Urine Clarity Sl. Cloudy Urine pH 6.0 Ur Specific [place] 1.025 Urine Protein 30 H Urine Glucose (UA) Normal Urine Ketones 150 A* Urine Occult Blood 25 H Urine Nitrite Positive H Urine Bilirubin 1 H Urine Urobilinogen 1 H Ur Leukocyte Esterase 500 H Urine RBC 10-25 SEEN Urine WBC 25-50 SEEN Ur Squamous Epith Cells 0 SEEN Ur Renal Epithelial Cell 0-5 SEEN Urine Bacteria 2+ Urine Mucus 0 SEEN Radiography Diagnostic Testing: Clinical Impression(s) from Imaging Studies KUB X-Ray 06/25/24 16:45 IMPRESSION: Non-obstructive bowel gas pattern. Moderate amount of fecal retention. Electronically Signed: Yannick Felipe MD at 17:33 EDT , Discharge Plan Triage Chief Complaint: Constipation ED Provider: Reggie Luo Dx/Rx/DC Orders Instructions: Urinary Tract Infections in Men, ED Constipation (Adult) Prescriptions: New cefdinir 300 mg capsule 600 mg PO DAILY Qty: 7 0RF No Action kratom PO Rx Instructions: Mix in with water phenobit 250 mg PO Zyrtec 10 mg capsule 10 mg PO DAILY PRN fluticasone propionate 50 mcg/actuation spray,suspension 1 spray intranasal DAILY metronidazole 500 mg tablet 500 mg PO TID Qty: 30 0RF Primary Care Provider: Care Physician,No Primary Referrals: Lopez Kruse MD [Med Staff - Active Staff] - Activity Restrictions/Additional Instructions: Thank you for trusting us with your care today! Please go to local pharmacy or drugstore and obtain a bowel regiment which consist of MiraLAX, Colace and senna. Please take each of these medicines daily until desired consistency and volume of stool is reached. You been diagnosed with a urinary tract infection. This is a bacterial infection of the urinary tract and bladder. Please take antibiotics as prescribed until course is completed. Please return to the emergency department if your symptoms change or worsen. Specifically if you begin vomiting, severe pain, to have bowel movements for greater than 2 weeks. Please follow with your primary care physician for further outpatient evaluation and management. Print Language: Russian Disposition Disposition: Home, Self Care
--- NOTE | 2024-06-25 16:45 | RAD_ITS ---
INDICATION: constipation EXAMINATION/TECHNIQUE: X-RAY - XR Abdomen 1 View COMPARISON: None FINDINGS: BOWEL GAS PATTERN: Non-obstructive. Moderate amount retained stool in the colon. FREE AIR: Not assessed on a single supine view. ORGANOMEGALY: Not seen. CALCIFICATIONS: No abnormal calcifications observed. LOWER CHEST: No acute pathology. BONES AND SOFT TISSUES: No acute pathology. RAD/Abdomen Single View (Portable) IMPRESSION: Non-obstructive bowel gas pattern. Moderate amount of fecal retention. Electronically Signed: Yannick Felipe MD at 17:33 EDT ,
[2024-06-25 16:54] LABS: Mucous, Urine 0 SEEN /hpf (<or=2+); Squamous Epithelial Cells - UA 0 SEEN /hpf (0-5)
[2024-06-25 16:58] LABS: Color, Urine Yellow (Yellow); Glucose, Dipstick Normal (Normal); Leukocyte Esterase-Dipstick 500 /ul (Negative); Nitrite-Dipstick Positive (Negative); Occult Blood-Urine 25 /ul (Negative); Protein-Dipstick 30 mg/dl (Negative); Specific Gravity, Urine 1.025 (1.002-1.030); Urine Bilirubin Dipstick 1 mg/dL (Negative); Urine Clarity Sl. Cloudy (Clear); Urine Urobilinogen 1 mg/dl (Normal)
[2024-06-25 17:00] LABS: Ketone-Dipstick 150 mg/dl (Negative)
[2024-06-25 17:06] LABS: Bacteria 2+ /hpf (None Seen); Red Blood Cells-Urine 10-25 SEEN /hpf (0-5); Renal Epithelial Cells 0-5 SEEN /hpf (0-5); White Blood Cells 25-50 SEEN /hpf (0-5)
[2024-06-25] MEDS: Cefdinir 300 MG Capsule 600 MG PO (17:38)
[2024-06-25 17:42] VITALS: BP 138/78; PULSE 74; RESP 18; TEMP 36.8; O2SAT 100
== END 2024-06-25 17:43 | disposition home or self-care (01) ==
PROVIDERS: Emergency Provider Emergency Medicine; Visit Provider Emergency Medicine
DX: N39.0 Urinary tract infection, site not specified (principal); F20.9 Schizophrenia, unspecified; F31.9 Bipolar disorder, unspecified; K59.00 Constipation, unspecified; R31.9 Hematuria, unspecified; F41.9 Anxiety disorder, unspecified; K12.2 Cellulitis and abscess of mouth; F17.210 Nicotine dependence, cigarettes, uncomplicated; Z79.899 Other long term (current) drug therapy
CPT/HCPCS: 74018; 81001; 87086; 87088; 87186; 99282